=== PATIENT | male | born 1965 | race Caucasian/White ===

== ENCOUNTER 2018-12-27 15:24 | Inpatient (IN) | payer MEDICAID, OTHER ==
[2018-12-27] MEDS ORDERED: Cefepime 1 GM in Sodium Chloride 0.9% 50 ML IVPB ONE (16:48)
[2018-12-27] MEDS ORDERED: Vancomycin 1 GM 1 GM/250 ML BAG IV STA (16:48)
[2018-12-27 17:20] LABS: BASO # 0.1 K/uL (0.0-0.2); BASO % 0.9 % (0.0-2.0); EOS % 0.3 % (0.0-4.0); HEMOGLOBIN 15.5 g/dL (12.0-18.0); LYMPH # 2.3 K/uL (1.0-4.3); LYMPH % 20.7 % (20.0-40.0); MEAN CELL VOLUME 87.9 fL (80.0-94.0); MEAN CORPUSCULAR HEMOGLOBIN 29.9 pg (27.0-31.0); MEAN PLATELET VOLUME 7.7 fL (7.2-11.7); MONO # 0.9 K/uL (0.0-0.8); MONO % 8.6 % (0.0-10.0); NEUT # 7.6 K/uL (1.8-7.0); NEUT % 69.5 % (50.0-75.0); RBC 5.18 Mil/uL (4.40-5.90); RED CELL DISTRIBUTION WIDTH 14.1 % (11.5-14.5); WHITE BLOOD COUNT 10.9 K/uL (4.8-10.8)
[2018-12-27 17:23] LABS: VENOUS BLOOD GAS BASE EXCESS 1.7 mmol/L (0.0-2.0); VENOUS BLOOD GAS PCO2 48 mmHg (40-60); VENOUS BLOOD GAS PO2 37 mm/Hg (30-55); VENOUS BLOOD PH 7.37 (7.32-7.43)
[2018-12-27] MEDS ORDERED: Vancomycin 1 GM 1 GM/250 ML BAG IVPB ONE (17:28)
[2018-12-27 17:36] LABS: ALB/GLOB RATIO 1.4 (1.0-2.1); ALBUMIN 4.4 g/dL (3.5-5.0); ALT/SGPT 16 U/L (21-72); AST/SGOT 34 U/L (17-59); BLOOD UREA NITROGEN 12 mg/dL (9-20); CALCIUM 9.2 mg/dl (8.6-10.4); GFR NON-AFRICAN AMERICAN > 60
[2018-12-27] MEDS ORDERED: Cefepime 1 GM in Sodium Chloride 0.9% 100 ML IVPB ONE (18:00)
--- NOTE | 2018-12-27 18:31 | C.PDOC ---
History Of Present Illness 52 year old cheyanne presents to the ED for evaluation of pain and redness to his left elbow. Patient states he sustained a fall two weeks ago and scraped his left elbow on the ground. Patient notes the area has been getting progressively more painful and swollen since the fall. [place] [facility] [place] where they drained the area, gave Keflex and discharged the patient. Patient followed up with his PMD, Dr. York, who was concerned and sent him to the ED for immediately evaluation. Patient denies fever, chills, extremity numbness/weakness. Time Seen by Provider: 12/27/18 16:22 Chief Complaint (Nursing): Abnormal Skin Integrity History Per: Patient History/Exam Limitations: no limitations Onset/Duration Of Symptoms: Days Current Symptoms Are (Timing): Still Present Location Of Injury: Left: Elbow Quality Of Symptoms: Painful, Swollen Additional History Per: Patient Past Medical History Reviewed: Historical Data, Nursing Documentation, Vital Signs Vital Signs: Last Vital Signs Temp 98.6 F 12/27/18 15:28 Pulse 85 12/27/18 15:28 Resp 17 12/27/18 15:28 BP 131/89 12/27/18 15:28 Pulse Ox 97 12/27/18 15:28 - Medical History PMH: No Chronic Diseases Surgical History: Back Surgery Family History: States: Unknown Family Hx - Social History Hx Alcohol Use: No Hx Substance Use: No - Immunization History Hx Tetanus Toxoid Vaccination: No Hx Influenza Vaccination: No Hx Pneumococcal Vaccination: No Review Of Systems Constitutional: Negative for: Fever, Chills Skin: Positive for: Other (left elbow pain and swelling ) Neurological: Negative for: Weakness, Numbness Physical Exam - Physical Exam Appears: Non-toxic, No Acute Distress, Other (comfortable ) Skin: Warm, Dry, Other (6-7cm area of erythema to left elbow. palpable abscess with pustule noted. area is warm with swelling. unable to express purulent discharge ) Head: Atraumatic, Normacephalic Eye(s): bilateral: Normal Inspection Oral Mucosa: Moist Neck: Supple Chest: Symmetrical, No Deformity, No Tenderness Cardiovascular: Rhythm Regular, No Murmur Respiratory: Normal Breath Sounds, No Rales, No Rhonchi, No Wheezing Extremity: Normal ROM, Capillary Refill (less than 2 seconds ) Pulses: Left Radial: Normal, Right Radial: Normal Neurological/Psych: Oriented x3, Normal Speech, Normal Cognition, Normal Motor, Normal Sensation ED Course And Treatment - Laboratory Results Result Diagrams: 12/27/18 17:13 12/27/18 17:13 Lab Results: pO2 37 mm/Hg (30-55) 12/27/18 17:15 VBG pH 7.37 (7.32-7.43) 12/27/18 17:15 VBG pCO2 48 mmHg (40-60) 12/27/18 17:15 VBG HCO3 25.5 mmol/L 12/27/18 17:15 VBG Total CO2 29.2 mmol/L (22-28) H 12/27/18 17:15 VBG O2 Sat (Calc) 75.0 % (40-65) H 12/27/18 17:15 VBG Base Excess 1.7 mmol/L (0.0-2.0) 12/27/18 17:15 VBG Potassium 3.4 mmol/L (3.6-5.2) L 12/27/18 17:15 Sodium 137.0 mmol/l (132-148) 12/27/18 17:15 Chloride 102.0 mmol/L (98-107) 12/27/18 17:15 Glucose 99 mg/dl (75-110) 12/27/18 17:15 Lactate 2.1 mmol/L (0.7-2.1) 12/27/18 17:15 FiO2 21.0 % 12/27/18 17:15 Total Bilirubin 0.8 mg/dL (0.2-1.3) 12/27/18 17:13 AST 34 U/L (17-59) 12/27/18 17:13 ALT 16 U/L (21-72) L 12/27/18 17:13 Alkaline Phosphatase 54 U/L (38-126) 12/27/18 17:13 Total Protein 7.7 g/dL (6.3-8.3) 12/27/18 17:13 Albumin 4.4 g/dL (3.5-5.0) 12/27/18 17:13 Globulin 3.3 gm/dL (2.2-3.9) 12/27/18 17:13 Albumin/Globulin Ratio 1.4 (1.0-2.1) 12/27/18 17:13 O2 Sat by Pulse Oximetry: 97 (on RA ) Pulse Ox Interpretation: Normal Progress Note: Bloodwork, Left elbow XR ordered and reviewed. Maxipime IV and Vancomycin IV given. - Scribe Statement The provider has reviewed the documentation as recorded by the Scribe (Jessie Andrews) Provider Attestation: All medical record entries made by the Scribe were at my direction and personally dictated by me. I have reviewed the chart and agree that the record accurately reflects my personal performance of the history, physical exam, medical decision making, and the department course for this patient. I have also personally directed, reviewed, and agree with the discharge instructions and disposition.
[2018-12-27 19:59] VITALS: RESP 20
[2018-12-27] MEDS ORDERED: Oxycodone/Acetaminophen 5/325 mg Tab PO PRN (20:57)
[2018-12-27 23:35] VITALS: O2SAT 96
[2018-12-28] MEDS ORDERED: Cefepime IV 1 gm in Dextrose 1 GM/50 ML BAG IVPB SCH (05:00)
[2018-12-28] MEDS ORDERED: Vancomycin 1 gm/NS 200 ml 1 GM/200 ML BAG IVPB SCH (06:00)
[2018-12-28 07:59] VITALS: BP 119/72; PULSE 77; TEMP 98.2
[2018-12-28] MEDS ORDERED: Enoxaparin 40 mg Syringe SC SCH (10:00)
--- NOTE | 2018-12-28 11:02 | RAD ---
Date of service: 12/27/2018 PROCEDURE: Radiographs of the left elbow. HISTORY: LEFT ELBOW INJURY/INFECTION COMPARISON: No prior. TECHNIQUE: 3 views obtained. FINDINGS: BONES: Normal. No fracture. JOINTS: Normal. No osteoarthritis. SOFT TISSUES: Normal. JOINT EFFUSION: None. OTHER FINDINGS: None IMPRESSION: No evidence of acute fracture or dislocation. No radiographic evidence of significant joint effusion.
[2018-12-29] MEDS ORDERED: Pneumococcal 23-Valent Vaccine IM ONE (10:00)
== END 2018-12-28 13:00 | disposition left against medical advice (07) | DRG 278 ==
LOC: C.ER 15:24 → C.9E 17:56 → C.3T 18:58
PROVIDERS: ADMIT Internal Medicine Pulmonary Disease; ATTEND Internal Medicine Pulmonary Disease
DX: L02.414 Cutaneous abscess of left upper limb (principal); Z53.21 Procedure and treatment not carried out due to patient leaving prior to being seen by health care provider